=== PATIENT | male | born 1995 | race Hispanic/Latino ===

== ENCOUNTER 2025-03-16 20:20 | Emergency (ER) | payer SELFPAY ==
[2025-03-16] MEDS ORDERED: TDAP (DIPHTH,PERTUSS(ACELL),TET VAC) 0.5 ML VIAL IMVAC ONE (20:52)
[2025-03-16] MEDS ORDERED: KETOROLAC 30 MG/ML INJ ONE (20:52)
[2025-03-16] MEDS ORDERED: ONDANSETRON 4 MG/2 ML VIAL ONE (20:52)
[2025-03-16] MEDS ORDERED: LIDOCAINE 1% 20 ML MDV ONE (20:52)
[2025-03-16] MEDS ORDERED: CEFAZOLIN SODIUM 2 GM/VIAL ONE (20:53)
[2025-03-16] MEDS ORDERED: NA CHLORIDE 0.9% 100 ML ONE (20:53)
[2025-03-16] MEDS ORDERED: SMZ./TMP. 800/160 MG TABLET ONE (21:54)
--- NOTE | 2025-03-16 22:17 | RAD REPORT ---
EXAM: Hand Right 2 View HISTORY: assess for foreign body COMPARISON: None FINDINGS: Bones: No acute fracture identified. Alignment:No significant malalignment. Degenerative changes:None significant. Other: n/a IMPRESSION: No acute osseous abnormality involving the imaged hand. No radiopaque foreign body.
--- NOTE | 2025-03-16 22:41 | ER ---
Nurse's Notes [facility] Name: Anuj Gasca Age: 29 yrs Sex: Male : 1995 Arrival Date: 03/16/2025 Time: 20:20 Bed 12 Private MD: Diagnosis: Right hand laceration with arterial bleeding, right hypothenar eminence. Presentation: 03/16 20:31 Chief complaint: Patient states: Pt to ED via POV c/o of hand laceration from a weed mf3 eater cutting grass. Bleeding controlled. Coronavirus screen: At this time, the client does not indicate any symptoms associated with coronavirus-19. Ebola Screen: No symptoms or risks identified at this time. Complicating Factors: small arterial laceration. Initial Sepsis Screen: Does the patient meet any 2 criteria? Yes Does the patient have a suspected source of infection? No. Patient's initial sepsis screen is negative. Risk Assessment: Do you want to hurt yourself or someone else? Patient reports no desire to harm self or others. Onset of symptoms was March 16, 2025. 20:31 Method Of Arrival: Ambulatory [facility] 20:31 Acuity: MACHO 3 3 Triage Assessment: 20:34 General: Appears in no apparent distress. comfortable, Behavior is calm, cooperative, mf3 appropriate for age. Pain: Denies pain. Neuro: Level of Consciousness is awake, alert, obeys commands, Oriented to person, place, time, situation, Appropriate for age. Cardiovascular: Capillary refill Patient's skin is warm and dry. Respiratory: Airway is patent Trachea midline Respiratory effort is even, unlabored. GI: No signs and/or symptoms were reported involving the gastrointestinal system. : No signs and/or symptoms were reported regarding the genitourinary system. Derm: No signs and/or symptoms reported regarding the dermatologic system. Musculoskeletal: Reports arterial laceration right hand. Injury Description: Laceration sustained to right hand is clean, bleeding moderately, was sustained 1-2 hours ago. is bleeding moderately a dressing was applied. Historical: - Allergies: 20:34 No Known Allergies; mf3 - Immunization history:: Adult Immunizations up to date, Last tetanus immunization: unknown. - Infectious Disease History:: Denies. - Social history:: Smoking status: Patient denies any tobacco usage or history of. - Family history:: not pertinent. Screenin:37 [facility] ED Fall Risk Assessment (Adult) History of falling in the last 3 months, mf3 including since admission No falls in past 3 months (0 pts) Confusion or Disorientation No (0 pts) Intoxicated or Sedated No (0 pts) Impaired Gait No (0 pts) Mobility Assist Device Used No (0 pt) Altered Elimination No (0 pt) Score/Fall Risk Level 0 - 2 = Low Risk. Abuse screen: Denies threats or abuse. Denies injuries from another. Nutritional screening: No deficits noted. Tuberculosis screening: No symptoms or risk factors identified. Never had TB. Assessment: 20:37 General: Appears in no apparent distress. comfortable, Behavior is calm, cooperative, mf3 appropriate for age. Pain: Denies pain. Neuro: Level of Consciousness is awake, alert, obeys commands, Oriented to person, place, time, situation, Appropriate for age Legal Billing Clerk are equal bilaterally Moves all extremities. Cardiovascular: Capillary refill Patient's skin is warm and dry. Respiratory: Airway is patent Trachea midline Respiratory effort is even, unlabored. GI: No signs and/or symptoms were reported involving the gastrointestinal system. : No signs and/or symptoms were reported regarding the genitourinary system. EENT: No signs and/or symptoms were reported regarding the EENT system. Injury Description: Laceration sustained to right hand is clean, bleeding moderately, is bleeding moderately a dressing was applied. 21:35 Reassessment: Shield Cleaner used; Name: Sara ID#[id number]. mf3 21:37 Reassessment: Patient denies pain at this time. Patient states feeling better. Patient mf3 states symptoms have improved. Laceration sutured by MD Faith . Vital Signs: 20:31 BP 147 / 89; Pulse 98; Resp 19; Temp 97.7; Pulse Ox 100% on R/A; Weight 80.74 kg; mf3 Height 5 ft. 4 in. ; Pain 0/10; 21:38 BP 142 / 84; Pulse 85; Resp 17; Temp 97.9; Pulse Ox 99% on R/A; mf3 20:31 Body Mass Index 30.39 (80.74 kg, 163 cm) mf3 20:31 Pain Scale: Adult mf3 [place] Coma Score: 20:37 Eye Response: spontaneous(4). Motor Response: obeys commands(6). Verbal Response: mf3 oriented(5). Total: 15. 21:46 Eye Response: spontaneous(4). Motor Response: obeys commands(6). Verbal Response: sp4 oriented(5). Total: 15. ED Course: 20:21 Patient arrived in ED. mr 20:30 Bernardo Cuevas MD is Attending Physician. sp4 20:31 Rupali Mosher, ELIZABETH is Primary Nurse. mf3 20:34 Triage completed. mf3 20:34 Arm band placed on left wrist. Patient MD Elizabeth has seen hand laceration and has mf3 applied bandag. 20:37 Patient has correct armband on for positive identification. Bed in low position. Call mf3 light in reach. Side rails up X 1. Provided Education on: Pt educated on plan of care . 21:00 Inserted saline lock: 20 gauge in left antecubital area, using aseptic technique. mf3 Flushed with 10 mL NS. 21:35 Provided Education on: Discharge instruction and medications (abx) via plasterer tender on mf3 Ipad. Name: Eran, ID#[id number]. 22:04 Hand Right 2 View XRAY In Process Unspecified. EDMS 22:48 No provider procedures requiring assistance completed. IV discontinued, intact, mf3 bleeding controlled, No redness/swelling at site. Pressure dressing applied. Administered Medications: 21:04 Drug: Lidocaine Infiltration (1 %) 40 ml 20 ml Infiltration once; to bedside {Note: mf3 given by provider .} Volume: 20 ml; Route: Infiltration; 21:20 Follow up: Response: No adverse reaction mf3 21:05 Drug: Ketorolac IVP 30 mg IVP once Route: IVP; Site: left antecubital; mf3 21:21 Follow up: Response: No adverse reaction; Pain is decreased mf3 21:05 Drug: ceFAZolin IVPB 2 grams IVPB once over 30 mins; (mix in 100 mL NS) Route: IVPB; mf3 Infused Over: 30 mins; Site: left antecubital; 21:20 Follow up: Response: No adverse reaction mf3 22:49 Follow up: IV Status: Completed infusion mf3 21:05 Drug: Ondansetron IVP 4 mg IVP once; over 2 minutes Route: IVP; Site: left antecubital; mf3 21:20 Follow up: Response: No adverse reaction mf3 21:05 Drug: Boostrix Tdap IM 0.5 ml IM once; as a single dose Route: IM; Site: left deltoid; mf3 21:20 Follow up: Response: No adverse reaction mf3 21:50 Drug: Trimethoprim-Sulfamethoxazole PO (160 mg-800 mg (DS) 1 tablet PO once Route: PO; mf3 21:58 Follow up: Response: No adverse reaction mf3 Medication: 20:39 Vaccine Information Statement (VIS) provided today. Questions and/or concerns mf3 addressed. VIS edition date: March 01, 2021. Outcome: 22:40 Discharge ordered by . spRedd 22:48 Discharged to home ambulatory, 3 22:48 Condition: stable 22:48 Discharge instructions given to patient, Instructed on discharge instructions, follow up and referral plans. Demonstrated understanding of instructions, follow-up care, medications, Prescriptions given X 3, 22:50 Patient left the ED. 3 Signatures: Dispatcher [employer] [facility] Maryuri Dumont, Bernardo Kirby MD MD sp4 Rupali Mosher RN RN mf3 Corrections: (The following items were deleted from the chart) 21:58 21:58 Trimethoprim-Sulfamethoxazole PO (160 mg-800 mg (DS) 1 tablet PO mf3 mf3
--- NOTE | 2025-03-16 22:41 | EDPHYS ---
Physician Documentation [facility] Name: Anuj Gasca Age: 29 yrs Sex: Male : 1995 Arrival Date: 03/16/2025 Time: 20:20 Bed 12 Private MD: ED Physician Bernardo Cuevas HPI: 03/16 20:30 This 29 yrs old Other Race Male presents to ER via Unassigned with complaints of sp4 Laceration To Hand. 21:46 29-year-old male presents with laceration to the right hand via weed eater. . sp4 21:46 Patient presents with a dressing in place that consists of paper towels. Moderate sp4 bleeding on initial exam with small pulsatile bleed indicative of small artery laceration.. Historical: - Allergies: 20:34 No Known Allergies; mf3 - Immunization history:: Adult Immunizations up to date, Last tetanus immunization: unknown. - Infectious Disease History:: Denies. - Social history:: Smoking status: Patient denies any tobacco usage or history of. - Family history:: not pertinent. ROS: 21:46 Constitutional: Negative for fever, chills, and weight loss, positive for right hand sp4 laceration of the right hypothenar eminence 21:46 All other systems are negative, Exam: 21:46 Constitutional: This is a well developed, well nourished patient who is awake, alert, sp4 and in no acute distress. Head/Face: Normocephalic, atraumatic. Eyes: Pupils equal round and reactive to light, extra-ocular motions intact. Lids and lashes normal. Conjunctiva and sclera are not injected. Cornea within normal limits. Periorbital areas with no swelling, redness, or edema. ENT: Nares patent. No nasal discharge, no septal abnormalities noted. Tympanic membranes are normal and external auditory canals are clear. Oropharynx with no redness, swelling, or masses, exudates, or evidence of obstruction, uvula midline. Mucous membranes moist. Neck: Trachea midline, no thyromegaly or masses palpated, and no cervical lymphadenopathy. Supple, full range of motion without nuchal rigidity, or vertebral point tenderness. Chest/axilla: Normal chest wall appearance and motion. Nontender with no deformity. No lesions are appreciated. Cardiovascular: Regular rate and rhythm with a normal S1 and S2. No gallops, murmurs, or rubs. No pulse deficits. Respiratory: Lungs have equal breath sounds bilaterally, clear to auscultation and percussion. No rales, rhonchi or wheezes noted. No increased work of breathing, no retractions or nasal flaring. Abdomen/GI: Soft, with normal bowel sounds. No distension or tympany. No guarding or rebound. No evidence of tenderness throughout. Back: No spinal tenderness. No costovertebral tenderness. Skin: Warm, dry with normal turgor. Normal color with no rashes, no lesions, and no evidence of cellulitis. MS/ Extremity: Pulses equal, no cyanosis. Neurovascular intact. Full, normal range of motion. Right hand contains a moderate size approximately 4 cm laceration of the right hypothenar eminence mostly on the palmar surface. There is small arterial bleeding on exam. Bleeding controlled with pressure dressing. Tendon function intact. Flexor extensor tendon function is normal. Right finger sensation is normal. Laceration is grossly contaminated.. There is no sign of sensation loss. Normal cap refill. Neuro: Awake and alert, GCS 15, oriented to person, place, time, and situation. Cranial nerves II-XII grossly intact. Motor strength 5/5 in all extremities. Sensory grossly intact. Psych: Awake, alert, with orientation to person, place and time. Behavior, mood, and affect are within normal limits Vital Signs: 20:31 BP 147 / 89; Pulse 98; Resp 19; Temp 97.7; Pulse Ox 100% on R/A; Weight 80.74 kg; 3 Height 5 ft. 4 in. ; Pain 0/10; 21:38 BP 142 / 84; Pulse 85; Resp 17; Temp 97.9; Pulse Ox 99% on R/A; mf3 20:31 Body Mass Index 30.39 (80.74 kg, 163 cm) 3 20:31 Pain Scale: Adult 3 [place] Coma Score: 20:37 Eye Response: spontaneous(4). Motor Response: obeys commands(6). Verbal Response: mf3 oriented(5). Total: 15. 21:46 Eye Response: spontaneous(4). Motor Response: obeys commands(6). Verbal Response: sp4 oriented(5). Total: 15. Laceration: 21:41 Wound Repair of 4cm ( 1.6in ) subcutaneous laceration to outer aspect of right palm - sp4 transverse oriented laceration right hypothenar eminence, 4 cm long , contaminated . Irregularly shaped.. Arterial bleeding noted.. Gross contamination.. Distal neuro/vascular/tendon intact. Anesthesia: Wound infiltrated with 20 mls of 1% lidocaine. Wound prep: Extensive cleansing by me, Copious irrigation. Skin closed with 9 4-0 Silk using vertical mattress sutures and sterile technique. Dressed with 4x4's, non-adherent dressing. Patient tolerated well. MDM: 20:32 Medical Screening Exam initiated sp4 21:41 Differential diagnosis: superficial laceration, tendon injury, vascular injury, sp4 Arterial laceration of the right hand. Data reviewed: vital signs, nurses notes, lab test result(s). 03/16 21:44 Order name: Hand Right 2 View XRAY; Complete Time: 22:39 sp4 03/16 20:32 Order name: IV Saline Lock; Complete Time: 20:50 sp4 03/16 20:32 Order name: Labs collected and sent; Complete Time: 21:05 sp4 03/16 20:32 Order name: Dressing - Wound; Complete Time: 21:04 sp4 03/16 20:32 Order name: Gloves, Sterile; Complete Time: 21:04 sp4 03/16 20:32 Order name: Setup Suture Tray; Complete Time: 21:04 sp4 03/16 20:32 Order name: Wound Care: done by MD ; Complete Time: 21:21 sp4 Administered Medications: 21:04 Drug: Lidocaine Infiltration (1 %) 40 ml 20 ml Infiltration once; to bedside {Note: mf3 given by provider .} Volume: 20 ml; Route: Infiltration; 21:20 Follow up: Response: No adverse reaction mf3 21:05 Drug: Ketorolac IVP 30 mg IVP once Route: IVP; Site: left antecubital; mf3 21:21 Follow up: Response: No adverse reaction; Pain is decreased mf3 21:05 Drug: ceFAZolin IVPB 2 grams IVPB once over 30 mins; (mix in 100 mL NS) Route: IVPB; mf3 Infused Over: 30 mins; Site: left antecubital; 21:20 Follow up: Response: No adverse reaction mf3 22:49 Follow up: IV Status: Completed infusion mf3 21:05 Drug: Ondansetron IVP 4 mg IVP once; over 2 minutes Route: IVP; Site: left antecubital; mf3 21:20 Follow up: Response: No adverse reaction mf3 21:05 Drug: Boostrix Tdap IM 0.5 ml IM once; as a single dose Route: IM; Site: left deltoid; mf3 21:20 Follow up: Response: No adverse reaction mf3 21:50 Drug: Trimethoprim-Sulfamethoxazole PO (160 mg-800 mg (DS) 1 tablet PO once Route: PO; mf3 21:58 Follow up: Response: No adverse reaction mf3 Disposition Summary: 03/16/25 22:40 Discharge Ordered Notes: Return here after 20 days for suture removal Location: Home sp4 Problem: new sp4 Symptoms: have improved sp4 Condition: Stable sp4 Diagnosis - Right hand laceration with arterial bleeding, right hypothenar eminence. sp4 Followup: sp4 - With: Private Physician - When: Suture removal after 20 days - Reason: Recheck today's complaints Discharge Instructions: - Discharge Summary Sheet sp4 - Laceration Care, Adult, [id number] sp4 Forms: - Work release form sp4 - Patient Portal Instructions sp4 Prescriptions: - meloxicam 15 mg Oral tablet - take 1 tablet ORAL route daily PRN pain; 30 tablet; Refills: 0, Product sp4 Selection Permitted - Cephalexin 500 mg Oral Capsule - take 1 capsule ORAL route every 12 hours for 10 days; 20 capsule; Refills: 0, sp4 Product Selection Permitted - Bactrim DS 800-160 mg Oral Tablet - take 1 tablet ORAL route every 12 hours for 10 days; 20 tablet; Refills: 0, sp4 Product Selection Permitted Signatures: Dispatcher [employer] Bernardo Washington MD MD sp4 Rupali Mosher RN RN mf3
[2025-03-16 23:06] VITALS: BP 147/89; TEMP 97.7; O2SAT 100
== END 2025-03-16 22:50 | disposition home or self-care (01) ==
LOC: ER 20:20
DX: S61.411A Laceration without foreign body of right hand, initial encounter (principal)
CPT/HCPCS: 13132; 90715; 96365; 96366; 96372; 96375; 99284; J2003; J2405